=== PATIENT | female | born 1935 | race Caucasian/White ===

== ENCOUNTER 2016-07-04 18:03 | Emergency (ER) | payer OTHER ==
[2016-07-04] MEDS ORDERED: Aspirin Low Dose CHEW TAB* 81 MG PO ONE (19:40)
--- NOTE | 2016-07-04 20:08 | RAD ---
INDICATION: Chest pain. COMPARISON: Comparison is made with a prior chest x-ray study from August 18, 2014. TECHNIQUE: A portable view of the chest was obtained. FINDINGS: Cardiac and mediastinal contours appear to be within normal limits. The lungs are underinflated and grossly clear. No pleural effusion is seen. IMPRESSION: NO EVIDENCE FOR ACUTE DISEASE.
[2016-07-04 20:40] LABS: Hematocrit 41 % (35-47); Hemoglobin 13.7 g/dl (12.0-16.0); Mean Corpuscular HGB Conc 34 g/dl (31-36); Mean Corpuscular Hemoglobin 30 pg (27-31); Mean Corpuscular Volume 90 fL (80-97); Mean Platelet Volume 10 um3 (7.4-10.4); Red Blood Count 4.52 10^6/ul (4.0-5.4); Red Cell Distribution Width 13 % (10.5-15); White Blood Count 7.9 10^3/ul (3.5-10.8)
[2016-07-04 20:56] LABS: Albumin 4.5 g/dL (3.2-5.2); BUN/Creatinine Ratio 11.3 (8-20); Calcium 9.4 mg/dL (8.6-10.3); EGFR African American 71.2 (>60); EGFR Non-African American 55.4 (>60); Globulin 2.8 g/dL (2-4); Potassium 3.7 mmol/L (3.5-5.0); Total Bilirubin 0.6 mg/dL (0.2-1.0); Total Protein 7.3 g/dL (6.4-8.9)
--- NOTE | 2016-07-04 21:08 | ED ---
Pedro Roberson Matthew, scribed for Rei Martin MD on 07/04/16 at 2048 . Complex/Multi-Sys Presentation - HPI Summary HPI Summary: A 80 y/o female presents to the ED with nausea since 18:26. The patient states that she was at the gym doing step-ups when she landed on her right foot and felt a sharp right calf pain. She finished her upper body work-out and returned home. While at home, she had associated nausea, chills, and shaking. She measured her BP, which was elevated at that time, so she called her PCP who recommended she presents to the ED. She states that every 10 minutes while in the EMS she would have severe nausea and "body numbness", which would then relief its self completely. Currently the patient states that she feels fine and the episodes have subsided. Hx of PA 9 years ago. The patient states that her symptoms were similar to when she had her PA . She takes a baby aspirin daily. - History Of Current Complaint Chief Complaint: EDGeneral Time Seen by Provider: 07/04/16 19:32 Hx Obtained From: Patient Onset/Duration: Lasting Hours, Resolved Timing: Intermittent, Lasting: - 10 minutes Severity Currently: Moderate Severity Initially: Moderate Location: Negative Associated Signs And Symptoms: Positive: Nausea, Other - extremitiy numbness - Allergies/Home Medications Allergies/Adverse Reactions: Allergies Allergy/AdvReac Type Severity Reaction Status Date / Time DAIRY Allergy Severe Swelling Uncoded 05/10/14 12:24 PMH/Surg Hx/FS Hx/Imm Hx Endocrine/Hematology History: Denies: Hx Diabetes Cardiovascular History: Reports: Hx Angioplasty, Hx Coronary Artery Disease, Hx Hypertension, Other Cardiovascular Problems/Disorders - ANGIOPLASTY 2008 Denies: Hx Congestive Heart Failure History: Denies: Hx Renal Disease Musculoskeletal History: Denies: Hx Osteoporosis Sensory History: Reports: Hx Cataracts, Hx Contacts or Glasses Denies: Hx Hearing Aid Opthamlomology History: Reports: Hx Cataracts, Hx Contacts or Glasses - Cancer History Cancer Type, Location and Year: Melanoma Hx Chemotherapy: No Hx Radiation Therapy: No - Surgical History Surgery Procedure, Year, and Place: ANGIOPLASTY WITH STENT-06/200709/28/11- [facility]ACELIFT RIGHT LEG VARICOSE VEIN[facility] [place] [facility] [place] [place] Hx Anesthesia Reactions: No - Immunization History Date of Tetanus Vaccine: Unk Date of Influenza Vaccine: None Infectious Disease History: No Infectious Disease History: Denies: Hx Clostridium Difficile, Hx Hepatitis, Hx Human Immunodeficiency Virus (HIV), Hx of Known/Suspected MRSA, Hx Shingles, Hx Tuberculosis, Hx Known/ Suspected VRE, Hx Known/Suspected VRSA, History Other Infectious Disease, Traveled Outside the [place] in Last 30 Days - Family History Family History: No FHx of malignant hyperthermia. No FHx of breast CA. No FHx of anesthesia reaction - Social History Alcohol Use: None Substance Use Type: Reports: None Smoking Status (MU): Never Smoked Tobacco Have You Smoked in the Last Year: No Review of Systems Constitutional: Other - Shaking Positive: Chills Eyes: Negative ENT: Negative Cardiovascular: Negative Respiratory: Negative Positive: Nausea Genitourinary: Negative Musculoskeletal: Negative Skin: Negative Positive: Numbness - Extremity ; since resolved Psychological: Normal All Other Systems Reviewed And Are Negative: Yes Physical Exam Triage Information Reviewed: Yes Vital Signs On Initial Exam: Initial Vitals Temp Pulse Resp BP Pulse Ox 97.8 F 83 18 112/60 98 07/04/16 18:25 07/04/16 18:25 07/04/16 18:25 07/04/16 18:25 07/04/16 18:25 Vital Signs Reviewed: Yes Appearance: Positive: Well-Appearing, No Pain Distress Skin: Positive: Warm Head/Face: Positive: Normal Head/Face Inspection Eyes: Positive: MATHEUS ENT: Positive: Hearing grossly normal Neck: Positive: Supple Respiratory/Lung Sounds: Positive: Clear to Auscultation, Breath Sounds Present Cardiovascular: Positive: RRR Abdomen Description: Positive: Nontender, Soft Bowel Sounds: Positive: Present Musculoskeletal: Positive: Strength/ROM Intact Neurological: Positive: Sensory/Motor Intact, Alert, Oriented to Person Place, Time Psychiatric: Positive: Affect/Mood Appropriate - [place] Coma Scale Coma Scale Total: 15 Diagnostics - Vital Signs Vital Signs Temp Pulse Resp BP Pulse Ox 07/04/16 18:32 79 20 100 07/04/16 18:31 137/55 07/04/16 18:27 97.8 F 80 16 112/60 100 07/04/16 18:25 97.8 F 83 18 112/60 98 - Laboratory Lab Results: Lab Results 04/25/17 04/25/17 04/25/17 Range/Units 20:25 20:25 20:25 WBC 7.9 (3.5-10.8) 10^3/ul RBC 4.52 (4.0-5.4) 10^6/ul Hgb 13.7 (12.0-16.0) g/dl Hct 41 (35-47) % MCV 90 (80-97) fL MCH 30 (27-31) pg MCHC 34 (31-36) g/dl RDW 13 (10.5-15) % Plt Count 221 (150-450) 10^3/ul MPV 10 (7.4-10.4) um3 Neut % (Auto) 84.3 H (38-83) % Lymph % (Auto) 13.0 L (25-47) % [place] % (Auto) 2.3 (1-9) % Eos % (Auto) 0.1 (0-6) % Baso % (Auto) 0.3 (0-2) % Absolute Neuts (auto) 6.6 (1.5-7.7) 10^3/ul Absolute Lymphs (auto) 1.0 (1.0-4.8) 10^3/ul Absolute Monos (auto) 0.2 (0-0.8) 10^3/ul Absolute Eos (auto) 0 (0-0.6) 10^3/ul Absolute Basos (auto) 0 (0-0.2) 10^3/ul Absolute Nucleated RBC 0 10^3/ul Nucleated RBC % 0 Sodium 132 L (133-145) mmol/L Potassium 3.7 (3.5-5.0) mmol/L Chloride 99 L (101-111) mmol/L Carbon Dioxide 26 (22-32) mmol/L Anion Gap 7 (2-11) mmol/L BUN 11 (6-24) mg/dL Creatinine 0.97 H (0.51-0.95) mg/dL Est GFR ( Amer) 71.2 (>60) Est GFR (Non-Af Amer) 55.4 (>60) BUN/Creatinine Ratio 11.3 (8-20) Glucose 138 H (70-100) mg/dL Lactic Acid 1.0 (0.5-2.0) mmol/L Calcium 9.4 (8.6-10.3) mg/dL Magnesium 2.0 (1.9-2.7) mg/dL Total Bilirubin 0.60 (0.2-1.0) mg/dL AST 24 (13-39) U/L ALT 19 (7-52) U/L Alkaline Phosphatase 55 (34-104) U/L Troponin I 0.00 (<0.04) ng/mL Total Protein 7.3 (6.4-8.9) g/dL Albumin 4.5 (3.2-5.2) g/dL Globulin 2.8 (2-4) g/dL Albumin/Globulin Ratio 1.6 (1-3) Result Diagrams: 07/04/16 20:25 07/04/16 20:25 Lab Statement: Any lab studies that have been ordered have been reviewed, and results considered in the medical decision making process. - Radiology CXR Xray Interpretation: No Acute Changes - IMPRESSION: NO EVIDENCE FOR ACUTE DISEASE. Radiology Interpretation Completed By: Radiologist - EKG 18:24 Cardiac Rate: NL - 79 bpm EKG Rhythm: Sinus Rhythm EKG Interpretation: No STEMI Re-Evaluation - Re-Evaluation First Eval Change: Improved - pt remains pain free Complex Multi-Symp Course/Dx Assessment/Plan: A 80 y/o female presents to the ED with nausea since 18:26. The patient states that she was at the gym doing step-ups when she landed on her right foot and felt a sharp right calf pain. She finished her upper body work-out and returned home. While at home, she had associated nausea, chills, and shaking. She measured her BP, which was elevated at that time, so she called her PCP who recommended she presents to the ED. She states that every 10 minutes while in the EMS she would have severe nausea and "body numbness", which would then relief its self completely. Currently the patient states that she feels fine and the episodes have subsided. Hx of PA 9 years ago. The patient states that her symptoms were similar to when she had her PA . She takes a baby aspirin daily. Labs were reviewed and troponin 1&2 were 0.00. CXR shows no evidence for acute disease. EKG shows . In the ED course, the patient was given aspirin. The patient did will in the ED and will be discharged home to follow-up with her PCP. - Diagnoses Provider Diagnoses: Nausea Discharge - Discharge Plan Condition: Stable Disposition: HOME Patient Education Materials: Acute Nausea and Vomiting (ED) Referrals: Patrick Levi MD [Primary Care Provider] - 2 Days Additional Instructions: Please follow-up with your primary care physician in 2 days. The documentation as recorded by the Pedro arriola Matthew accurately reflects the service I personally performed and the decisions made by me, Rei Martin MD.
[2016-07-05 01:15] VITALS: BP 156/74
== END 2016-07-05 01:17 | disposition home or self-care (01) ==
LOC: ED 18:03
DX: R11.0 Nausea (principal); R07.9 Chest pain, unspecified; R68.83 Chills (without fever)
CPT/HCPCS: 36415; 71010; 80053; 83605; 83735; 84484; 85025; 93005; 99283; A9270-GY

== ENCOUNTER 2017-08-02 06:26 | Day surgery (SDC) | payer SELFPAY ==
[~2017-08-02 06:26] MED LIST: Buffered Lidocaine 0.9% SYRIN* 5 ML/SYR SYRINGE INTRADERM ONE
[2017-08-02] MEDS ORDERED: Dexamethasone IV* 4 MG/ML 1 ML (4 MG) ONE (06:36)
[2017-08-02] MEDS ORDERED: ceFAZolin 2 GM PREMIX (*) 2 GM/50 ML BAG IVPB ONE (06:36)
[2017-08-02] MEDS ORDERED: Buffered Lidocaine 0.9% SYRIN* 5 ML/SYR SYRINGE ONE (07:09)
[2017-08-02] MEDS ORDERED: Ondansetron ODT TAB* 4 MG ONE (07:17)
[2017-08-02] MEDS ORDERED: Lidocaine 1.5% EPI 1:200,000* 30 ML SDV ONE (07:22)
[2017-08-02] MEDS ORDERED: Bacitracin OINTMENT* 0.5% 0.5 oz TUBE ONE (07:22)
[2017-08-02] MEDS ORDERED: Lidocain 1% EPI 1:100,000 * 30 ML MDV ONE ×3 (07:22→07:48)
[2017-08-02] MEDS ORDERED: BSS OPTH.SOL* BTL ONE (07:23)
[2017-08-02] MEDS ORDERED: Scopolamine 1.5 mg* PATCH ONE (07:23)
[2017-08-02] MEDS ORDERED: fentaNYL* 50 MCG/ML 2 ML VIAL (100 MCG VIAL) ONE (07:35)
[2017-08-02] MEDS ORDERED: Midazolam* 1 MG/ML 5 ML VIAL (5 MG) ONE (07:38)
[2017-08-02] MEDS ORDERED: Propofol* 10 MG/ML 20 ML BTL IV PUSH ONE (08:44)
[2017-08-02] MEDS ORDERED: Midazolam* 1 MG/ML 2 ML VIAL (2 MG) ONE (09:16)
[2017-08-02] MEDS ORDERED: oxyCODONE TAB* 5 MG TAB PO PRN (09:50)
[2017-08-02] MEDS ORDERED: Naloxone* 0.4 MG/ML 1 ML VIAL IV PRN (09:50)
[2017-08-02] MEDS ORDERED: Acetaminophen TAB* 325 MG PO PRN (09:50)
[2017-08-02] MEDS ORDERED: DiMENhydriNATE IV* 50 MG/ML VIAL IV PUSH PRN (09:50)
[2017-08-02 10:36] VITALS: BP 109/73
== END 2017-08-02 10:28 | disposition home or self-care (01) ==
LOC: OREAST 06:26
PROVIDERS: ATTEND Plastic Surgery
DX: Z41.1 Encounter for cosmetic surgery (principal); I10 Essential (primary) hypertension; I25.10 Atherosclerotic heart disease of native coronary artery without angina pectoris; I25.2 Old myocardial infarction; Z95.5 Presence of coronary angioplasty implant and graft; Z85.820 Personal history of malignant melanoma of skin
CPT/HCPCS: A9270-GY; J0690; J1100; J2250; J2704; J3010

== ENCOUNTER 2018-09-20 13:37 | Emergency (ER) | payer OTHER ==
[2018-09-20 13:53] VITALS: BP 144/64
--- NOTE | 2018-09-20 14:23 | UC ---
Skin Complaint HPI - HPI Summary HPI Summary: She's had a red area on her left lower leg for several days. It's mildly painful. She's tried to use some Neosporin on it. - History of Current Complaint Chief Complaint: EMMAkin Stated Complaint: SOFT TISSUE Hx Obtained From: Patient Onset/Duration: Gradual Onset Skin Exposure Onset/Duration: Days Ago Timing: Constant Onset Severity: Mild Current Severity: Moderate Pain Intensity: 6 Location: Other - Left lower leg Aggravating Factor(s): Nothing Alleviating Factor(s): Nothing Associated Signs & Symptoms: Positive: Negative - Allergy/Home Medications Allergies/Adverse Reactions: Allergies Allergy/AdvReac Type Severity Reaction Status Date / Time DAIRY Allergy Severe Swelling Uncoded 09/20/18 13:53 PMH/Surg Hx/FS Hx/Imm Hx Cardiovascular History: Hypertension - Surgical History Surgical History: Yes Surgery Procedure, Year, and Place: ANGIOPLASTY WITH STENT-06/200709/28/11- [facility]EL[facility] RIGHT LEG VARICOSE [facility]IN[facility] [place] [facility] 1999appendectomy - Family History Family History: No FHx of malignant hyperthermia. No FHx of breast CA. No FHx of anesthesia reaction - Social History Alcohol Use: None Substance Use Type: None Smoking Status (MU): Never Smoked Tobacco Have You Smoked in the Last Year: No - Immunization History Most Recent Influenza Vaccination: never Most Recent Tetanus Shot: unknown Most Recent Pneumonia Vaccination: never Review of Systems All Other Systems Reviewed And Are Negative: Yes Constitutional: Positive: Negative Skin: Positive: Rash Physical Exam - Summary Physical Exam Summary: She is nontoxic in appearance with stable vitals. Triage Information Reviewed: Yes Appearance: Well-Appearing, No Pain Distress Vital Signs: Initial Vital Signs Temp 97.6 F 09/20/18 13:48 Pulse 73 09/20/18 13:48 Resp 18 09/20/18 13:48 BP 144/64 09/20/18 13:48 Pulse Ox 98 09/20/18 13:48 Vital Signs Reviewed: Yes Neck exam: Normal Musculoskeletal Exam: Normal Neurological Exam: Normal Skin Exam: Other - There is a deep red circular area about 6 cm on her lower leg. It's mildly swollen but not indurated or fluctuant. Course/Dx - Course Course Of Treatment: This looks to me like an infected insect bite. I recommended oral antibiotics but she was to try ointment first. She will get the oral antibiotic filled if the topical was not working I will give her Bactroban and doxycycline. - Diagnoses Provider Diagnosis: Wound infection Discharge - Sign-Out/Discharge Documenting (check all that apply): Patient Departure All imaging exams completed and their final reports reviewed: No Studies - Discharge Plan Condition: Stable Disposition: HOME Patient Education Materials: Wound Infection (ED) Referrals: Mateo Maddox MD [Primary Care Provider] - - Billing Disposition and Condition Condition: STABLE Disposition: Home
== END 2018-09-20 14:34 | disposition home or self-care (01) ==
LOC: UCEAST 13:37
DX: S80.862A Insect bite (nonvenomous), left lower leg, initial encounter (principal); L08.9 Local infection of the skin and subcutaneous tissue, unspecified; W57.XXXA Bitten or stung by nonvenomous insect and other nonvenomous arthropods, initial encounter; Y92.9 Unspecified place or not applicable; I10 Essential (primary) hypertension
CPT/HCPCS: 99212; G0463